=== PATIENT | female | born 2000 | race Asian ===

== ENCOUNTER 2024-12-06 08:53 | Outpatient (REF) | payer OTHER, SELFPAY ==
--- NOTE | ~2024-12-06 | US_ITS ---
EXAMINATION: US THYROID CLINICAL INFORMATION: Hypothyroidism. COMPARISON: None available. TECHNIQUE: Linear transducer grayscale and color Doppler examination with attention to the region of the thyroid. FINDINGS: SIZE: Measurements of the thyroid lobes and nodules are given in sagittal, anteroposterior and transverse dimensions respectively. Right Thyroid Lobe: 4.2 x 1.2 x 1.2 cm, volume 3.2 mL. Parenchyma: The gland echotexture is homogeneous. Thyroid vascularity is normal. Left Thyroid Lobe: 3.1 x 0.7 x 1.1 cm, volume 1.3 mL. Parenchyma: The gland echotexture is homogeneous. Thyroid vascularity is normal. Isthmus: 0.26 cm in maximum AP dimension. There are no thyroid nodules present. NODES: No lymphadenopathy is seen in the tissue surrounding the thyroid gland. US/US thyroid IMPRESSION: 1. Normal ultrasound examination of the thyroid. There are no discrete nodules. Electronically signed by: Harris Valle MD 12/06/2024 12:39 PM EDT
--- OUTSIDE RECORDS SUMMARY | 2024-12-06 09:27 | XMS_ITS | Clinical Summary ---
Author Organization [facility] Address [address] [place] [phone] Phone Care Team Providers Care Husbandry Technician Name Role Phone Pcp, Unknown Primary Care Provider Unavailabl e Allergies No known active allergies Medications No known medications Social History Tobacco Use Types Packs/Day Years Used Date Smoking Tobacco: Never Assessed Education Answer Date Recorded Are you interested in more education? Not on suzanne e 07/03/2022 Are you concerned about learning? Not on file 07/03/2022 No 07/03/2022 No 07/03/2022 Digital Access Answer Date Recorded No 08/03/2022 No 08/03/2022 Reliable internet access at home? Not on file 08/03/2022 Device with a working camera? Not on file Comments No Sex and Gender Information Value Date Recorded Sex Assigned at Not on file Legal Sex Female 11:01 AM EDT Gender Identity Not on file Sexual Orientation Not on file Last Filed Vital Signs Vital Sign Reading Time Taken Comments Blood Pressure 106/66 10/05/2022 9:35 PM EDT Pulse 78 10/05/2022 9:35 PM EDT Temperature 36.7 C (98 F) 10/05/2022 9:35 PM EDT Respiratory Rate 18 10/05/2022 9:35 PM EDT Oxygen Saturation 99% 10/05/2022 9:35 PM EDT Inhaled Oxygen Concentration - - Weight 46.3 kg (102 lb) 06/26/2021 11:40 AM EDT Height 165.1 cm (5' 5 ) 06/26/2021 11:40 AM EDT Body Mass Index 16.97 06/26/2021 11:40 AM EDT Plan of Treatment Not on file Medical Devices Not on file Insurance [employer] [facility] [employer] [employer] CIG[employer] CIG[employer] [facility] [employer]IG[employer] [facility] Care Teams Husbandry Technician Relationship Specialty Start Date End Date Pcp, Unknown PCP - General 06/26/21 Additional Source Comments The information contained in this document represents components of the legal health record. It is not the complete legal health record.[facility]
== END 2024-12-06 08:54 | disposition home or self-care (01) ==
LOC: HO.UMASIMG 08:53
PROVIDERS: Visit Provider Emergency Medicine
DX: E03.9 Hypothyroidism, unspecified (principal)
CPT/HCPCS: 76536

== ENCOUNTER → 2024-12-06 11:30 | Outpatient (BNV) | payer OTHER, SELFPAY | PROVIDERS: Visit Provider Radiology Diagnostic Radiology | DX: E03.9 Hypothyroidism, unspecified (principal) | CPT/HCPCS: 76536 ==